=== PATIENT | male | born 1960 | race Caucasian/White ===

== ENCOUNTER 2018-06-07 14:50 | Emergency (ER) | payer SELFPAY | END 2018-06-07 17:25 | disposition left against medical advice (07) | LOC: E/R 14:50 | DX: Z53.21 Procedure and treatment not carried out due to patient leaving prior to being seen by health care provider (principal) ==

== ENCOUNTER 2018-09-14 17:42 | Emergency (ER) | payer OTHER ==
[2018-09-14] MEDS: LIDOCAINE 1% (MPF) 5 ML VIAL SC (19:26)
[2018-09-14] MEDS: SILVER NITRATE SWAB TOP (19:26)
[2018-09-14] MEDS ORDERED: LIDOCAINE 1% (MDV) 20 ML INJ SC (19:30)
[2018-09-14] MEDS: ACETAMINOPHEN 325 MG TAB PO (20:15)
[2018-09-14] MEDS: HYDROCODONE/APAP (5/325) TAB PO (20:17)
== END 2018-09-14 21:01 | disposition home or self-care (01) ==
LOC: FTE 17:42
DX: L98.0 Pyogenic granuloma (principal); I10 Essential (primary) hypertension; Z87.891 Personal history of nicotine dependence
CPT/HCPCS: 11401; 99283-25

== ENCOUNTER 2018-09-18 17:13 | Emergency (ER) | payer OTHER | END 2018-09-18 19:40 | disposition home or self-care (01) | LOC: FTE 17:13 | DX: Z48.02 Encounter for removal of sutures (principal); I10 Essential (primary) hypertension; E11.9 Type 2 diabetes mellitus without complications; Z86.73 Personal history of transient ischemic attack (TIA), and cerebral infarction without residual deficits | CPT/HCPCS: 99281; Z7502 ==